=== PATIENT | male | born 1945 | race Caucasian/White ===

== ENCOUNTER 2019-09-01 12:15 | Outpatient (CLI) | payer MEDICARE ==
[~2019-09-01 12:15] MED LIST: APIX5TAB PO; ASPI-496 PO; ASPI-650 PO; CHOL100012 PO; DIAZ5TAB PO; DOCU-131 PO; FLEC100T PO; LEVO75TA59 PO; MULT-717 PO; OMEG-120 PO; TRAM50TA2 PO
[2019-09-01 13:10] LABS: BASOPHILS # (AUTO) 0.01 x10^3/uL (0-0.1); BASOPHILS % (AUTO) 0 % (0-1); EOSINOPHILS # (AUTO) 0.06 x10^3/uL (0-0.4); EOSINOPHILS % (AUTO) 1 % (1-7); LYMPHOCYTES # (AUTO) 0.91 x10^3/uL (1-3.4); LYMPHOCYTES % (AUTO) 12 % (22-44); MD NO; MEAN CORPUSCULAR HEMOGLOBIN 30.9 pg (27.5-34.5); MEAN CORPUSCULAR HGB CONC 33.5 g/dL (33.2-36.2); MEAN CORPUSCULAR VOLUME 92.2 fL (81-97); MEAN PLATELET VOLUME 7.2 fL (7.4-10.4); MONOCYTES # (AUTO) 0.91 x10^3/uL (0.2-0.8); MONOCYTES % (AUTO) 12 % (2-9); NEUTROPHILS % (AUTO) 75 % (42-75); PLATELET COUNT 213 x10^3/uL (130-400); RED BLOOD COUNT 4.88 x10^6/uL (4.38-5.82); RED CELL DISTRIBUTION WIDTH 12.7 % (9.4-14.8)
[2019-09-01 13:22] LABS: CALCIUM 8.8 mg/dL (8.5-10.1); CHLORIDE 111 mmol/L (98-107)
[2019-09-01 13:25] LABS: ANION GAP 5 mmol/L (5-15); CREATININE 1.08 mg/dL (0.7-1.3)
[2019-09-08] MEDS ORDERED: FLEC100T PO (07:06)
[2019-09-09] MEDS ORDERED: COLC0.6C3 PO (09:07)
[2019-09-09] MEDS ORDERED: APIX5TAB PO (09:07)
[2019-09-09] MEDS ORDERED: FLEC100T PO (09:07)
== END 2019-09-01 23:59 | disposition home or self-care (01) ==
LOC: STAR 12:15
PROVIDERS: ATTEND Internal Medicine Cardiovascular Disease
DX: Z01.810 Encounter for preprocedural cardiovascular examination (principal); I48.91 Unspecified atrial fibrillation; J92.9 Pleural plaque without asbestos
CPT/HCPCS: 36415; 71046; 80048; 85025; 93005

== ENCOUNTER → 2019-09-02 | Outpatient (CLI) | payer MEDICARE ==
[~2019-09-02] MED LIST changes: +OMNIPAQUE 350 MG/ML, 150 ML BOTTLE ONE
== END | disposition home or self-care (01) ==
LOC: CFH 14:35
PROVIDERS: ATTEND Internal Medicine Cardiovascular Disease
DX: I48.0 Paroxysmal atrial fibrillation (principal)
CPT/HCPCS: 75572; Q9967